=== PATIENT | male | born 1950 | race Caucasian/White ===

== ENCOUNTER → 2018-08-13 18:25 | Outpatient (REF) | payer MEDICARE, OTHER, SELFPAY ==
[2018-08-13 19:05] LABS: HEMOLYSIS < 15 (0-50)
[2018-08-13 19:11] LABS: Add Manual Diff / Slide Review NO; Basophils Absolute Auto 0 /uL (0-100); Basophils Percent Auto 0.5 % (0-2); Eosinophils Absolute Auto 200 /uL (0-450); Hematocrit 44.4 % (41-53); Hemoglobin 14.8 g/dL (13.5-17.5); Lymphocytes Absolute Auto 1600 /uL (1100-4500); Lymphocytes Percent Auto 28.2 % (25-40); Mean Corpuscular HGB Conc 33.3 % (30-36); Mean Corpuscular Hemoglobin 32.1 PG (26-34); Mean Corpuscular Volume 96.6 fL (80-100); Monocytes Absolute Auto 500 /uL (0-900); Monocytes Percent Auto 7.9 % (3-14); Neutrophils Absolute Auto 3400 /uL (1500-7000); Neutrophils Percent Auto 60.4 % (50-75); Platelet Count 167 X10^3/uL (150-400); Red Cell Distribution Width 13.6 % (11.6-14.8); White Blood Cell Count 5.7 X10^3/uL (4.5-11.0)
[2018-08-13 19:12] LABS: Alanine Aminotransferase 42 IU/L (21-72); Albumin 4.3 g/dL (3.5-5.0); Albumin Globulin Ratio 1.5 (1.0-2.8); Alkaline Phosphatase 61 U/L (38-126); Aspartate Aminotransferase 32 IU/L (17-59); BUN Creatinine Ratio 24.2 (6-22); Bilirubin Total 1.4 mg/dL (0.2-1.3); Blood Urea Nitrogen 29 mg/dL (9-20); Calcium 9.6 mg/dL (8.4-10.2); Carbon Dioxide 30 mmol/L (22-32); Chloride 103 mmol/L (98-107); Cholesterol 162 mg/dL (140-199); Estimated Glomerular Filt Rate > 60.0 mL/min (>60); Globulin 2.8 g/dL (1.7-4.1); Glucose 96 mg/dL (80-110); HDL Cholesterol 51 mg/dL (40-60); LDL Cholesterol Calculated 91 mg/dL (<100); Potassium 3.9 mmol/L (3.4-5.1); Sodium 141 mmol/L (137-145); Total Protein 7.1 g/dL (6.3-8.2); Triglycerides 99 mg/dL (35-150)
[2018-08-13 20:07] LABS: Prostate Specific Antigen < 0.064 ng/mL (0.10-4.00)
== END ==
LOC: LAB 18:25
PROVIDERS: Family Medicine Geriatric Medicine
DX: C61 Malignant neoplasm of prostate (principal); E78.5 Hyperlipidemia, unspecified; I10 Essential (primary) hypertension
CPT/HCPCS: 36415; 80053; 80061; 84153; 85025

== ENCOUNTER → 2021-06-09 07:58 | Outpatient (CLI) | payer MEDICARE, OTHER, SELFPAY ==
--- NOTE | 2021-06-09 | DI.NM.S_ITS ---
PROCEDURE: [place] BONE SCAN WHOLE BODY RADIOPHARMACEUTICAL: 19.7 mCi Tc-99m MDP IV. INDICATIONS: MALIGNANT NEOPLASM OF PROSTATE TECHNIQUE: Delayed whole-body scintigrams were obtained approximately 3-4 hours after intravenous injection of radiotracer. Anterior and posterior views were acquired from vertex to feet. COMPARISON: [facility], CT, CHEST/ABD/PEL WITH CONTRAST, 01/27/2017, 9:20. [facility], CT, CT CHEST ABD PEL W CON, 06/09/2021, 9:44. [place], [place], BONE SCAN WHOLE BODY, 04/26/2013, 11:43. [place], [place], BONE SCAN WHOLE BODY, 01/27/2017, 11:19. FINDINGS: No lesions are identified in skull, sternum, clavicles, scapulae, ribs, bony pelvis, and visualized shafts of the long bones. There is low level increased uptake in cervical, thoracic and lumbar spine with distribution indistinguishable from degenerative disc and facet disease; early metastasis to spine could be obscured by degenerative changes. There are foci of increased periarticular activity involving shoulders, sternoclavicular joints, elbows, hips, SI joints, knees, ankles and feet, compatible with degenerative/arthritic changes. IMPRESSION: No scintigraphic findings to suggest osseous metastasis. Dictated by: Mono Alexander M.D. on 06/09/2021 at 17:14 Approved by: Mono Alexander M.D. on 06/09/2021 at 17:17
[2021-06-09 08:42] LABS: Alanine Aminotransferase 26 IU/L (<50); Albumin 4.4 g/dL (3.5-5.0); Albumin Globulin Ratio 1.5 (1.0-2.8); Alkaline Phosphatase 59 U/L (38-126); Aspartate Aminotransferase 35 IU/L (17-59); BUN Creatinine Ratio 23.3 (6-22); Bilirubin Total 2.2 mg/dL (0.2-1.3); Blood Urea Nitrogen 31 mg/dL (9-20); Calcium 9.3 mg/dL (8.4-10.2); Carbon Dioxide 33 mmol/L (22-32); Chloride 103 mmol/L (98-107); Estimated Glomerular Filt Rate 53.2 mL/min (>60); Globulin 2.9 g/dL (1.7-4.1); Glucose 103 mg/dL (80-110); HEMOLYSIS < 15 (0-50); Potassium 3.7 mmol/L (3.4-5.1); Sodium 139 mmol/L (137-145); Total Protein 7.3 g/dL (6.3-8.2)
--- NOTE | 2021-06-09 09:55 | DI.CT.S_ITS ---
PROCEDURE: CT CHEST ABD PEL W CON INDICATIONS: MALIGNANT NEOPLASM OF PROSTATE TECHNIQUE: After the administration of oral and intravenous contrast, axial sections acquired from the supraclavicular neck to the pubic symphysis. Coronal and sagittal reformats were performed. For radiation dose reduction, the following was used: automated exposure control, adjustment of mA and/or kV according to patient size. COMPARISON: [facility], [place], BONE SCAN WHOLE BODY, 01/27/2017, 11:19. [facility], CT, CHEST/ABD/PEL WITH CONTRAST, 01/27/2017, 9:20. FINDINGS: Image quality: Excellent. CHEST: Lower Neck: No enlarged lymph nodes. Thyroid: Unremarkable. Axillae: No enlarged lymph nodes. Chest Wall: Prior right-sided rib fractures. Lungs and Airways: A few small pulmonary nodules. For example: -right upper lobe 0.4 cm, (3/87), unchanged since 2017 suggesting a benign etiology. -left lower lobe subpleural 0.4 cm, (3/199), unchanged. Mild atelectasis. No mass. Airways are clear. Pleura: No pneumothorax or pleural effusions. Heart: Heart size is normal. No pericardial effusion. Thoracic Vessels: The aorta and pulmonary arteries demonstrate normal size. Mediastinum and Leonela: No enlarged lymph nodes. Small mediastinal nodes are unchanged in appearance compared to 2017. Esophagus: No wall thickening. No hiatal hernia. ABDOMEN: Liver: No focal lesion. Gallbladder: Unremarkable. Biliary ducts: Unremarkable. Pancreas: Unremarkable. Spleen: Unremarkable. Adrenal Glands: Unremarkable. Kidneys and Ureters: No hydronephrosis. Tiny right cortical hypodensity. Stomach and Bowel: Stomach, small bowel loops, and colon are unremarkable. Small sigmoid diverticulum. The appendix is not identified. Peritoneum: No abnormal intraperitoneal fluid. No free air. Ventral Wall: No hernia. Abdominal Nodes: No retroperitoneal or mesenteric adenopathy by size criteria. Vessels: Aorta and inferior vena cava are normal in size. Minimal calcified plaque. Small left renal artery aneurysm with calcification measuring 1.2 cm, (2/65), previously 1.1 cm in 2017. PELVIS: Pelvic Organs: Scarring in the left perineum is unchanged compared to 2017. Prostatectomy. Penile reservoir at the right lower quadrant. Bladder: Unremarkable. Pelvic Nodes: -Small node right anterior to the bladder measuring 0.7 cm short axis diameter, (2/108), remotely 0.5 cm in 2017. -Left anterior to the bladder node with a short axis diameter of 0.5 cm, (2/111), previously 0.4 cm. Miscellaneous: No inguinal hernias are seen. Bones: L2 compression fracture, unchanged. No sclerotic lesions seen. IMPRESSION: 1. Post prostatectomy. 2. No enlarged lymph nodes. Subcentimeter nodes in the pelvis are similar to 2017. 3. No sclerotic osseous lesions identified. 4. Small pulmonary nodules measuring 0.4 cm or less are unchanged. Dictated by: Renato Blake M.D. on 06/09/2021 at 11:05 Approved by: Renato Blake M.D. on 06/09/2021 at 11:23
== END ==
PROVIDERS: Family Provider Family Medicine Geriatric Medicine; PCP Family Medicine; Referring Provider Internal Medicine; Visit Provider Internal Medicine
DX: C61 Malignant neoplasm of prostate (principal); R91.8 Other nonspecific abnormal finding of lung field
CPT/HCPCS: 36415; 71260; 74177; 78306; 80053; A9503

== ENCOUNTER → 2023-12-28 09:24 | Outpatient (CLI) | payer MEDICARE, OTHER, SELFPAY ==
--- NOTE | 2023-12-28 09:30 | DI.NM.S_ITS ---
PROCEDURE: [place] BONE SCAN WHOLE BODY RADIOPHARMACEUTICAL: 20 mCi Tc-99m MDP IV. INDICATIONS: Malignant neoplasm of prostate TECHNIQUE: Delayed whole-body scintigrams were obtained approximately 3-4 hours after intravenous injection of radiotracer. Anterior and posterior views were acquired from vertex to feet. COMPARISON: [place], [place], [place] BONE SCAN WHOLE BODY, 06/09/2021, 14:16. FINDINGS: No scintigraphic evidence suggestive osseous metastatic disease. Stable small focus of increased uptake within the right posterior 5th rib of uncertain etiology, given stability for multiple years this is likely not metastatic in etiology. Multifocal periarticular uptake involving the shoulders, knees, feet and mild uptake throughout the spine, favored to be degenerative in etiology. IMPRESSION: No definite scintigraphic evidence of osseous metastatic disease. Dictated by: Teofilo Mejia M.D. on 12/28/2023 at 15:31 Approved by: Teofilo Mejia M.D. on 12/28/2023 at 15:34
--- NOTE | 2023-12-28 09:31 | DI.CT.S_ITS ---
PROCEDURE: CT CHEST ABD PEL W CON INDICATIONS: Malignant neoplasm of prostate TECHNIQUE: After the administration of intravenous contrast, 5 mm thick sections acquired from the lung apices to the symphysis. 5 mm coronal and sagittal reformats were performed, with additional 7 mm MIP reformats through the lungs. For radiation dose reduction, the following was used: automated exposure control, adjustment of mA and/or kV according to patient size. COMPARISON: [facility], CT, CT CHEST ABD PEL W CON, 06/09/2021, 9:44. [place], [place] BONE SCAN WHOLE BODY, 06/09/2021, 14:16. [place], [place] BONE SCAN WHOLE BODY, 12/28/2023, 10:33. FINDINGS: Image quality: Excellent. CHEST: Lower Neck: No enlarged lymph nodes. Thyroid: No thyroid nodules which require sonographic follow up, per consensus guidelines. Axillae: No enlarged lymph nodes. Chest Wall: Bilateral gynecomastia. Lungs and Pleura: No pneumothorax or pleural effusions. Scattered solid pulmonary micro nodules, similar to prior. For instance, the 3 mm solid nodule in the right upper lobe is unchanged (series 5, image 72), and the 2 mm nodule in the lingula is unchanged (series 5, image 193). Heart: Heart size is normal. No pericardial effusion. Thoracic Vessels: The aorta and pulmonary arteries demonstrate normal size. Small burden filling defects within the proximal segmental and subsegmental pulmonary arteries, left greater than right. Mediastinum and Leonela: No enlarged lymph nodes. Esophagus: No wall thickening. No hiatal hernia. ABDOMEN: Liver: No solid mass. Gallbladder: No radiopaque gallstones or wall thickening. Biliary ducts: No biliary dilation. Pancreas: No ductal dilation. Spleen: Size is within normal limits. Adrenal Glands: No adrenal nodules. Kidneys and Ureters: No hydronephrosis. No solid mass. No complex renal cystic lesion which requires follow up. Stomach and Bowel: Normal colonic caliber, without significant wall thickening. Colonic diverticulosis without evidence of diverticulitis. Peritoneum: No abnormal intraperitoneal fluid. No free air. Ventral Wall: No significant ventral hernia. Abdominal Nodes: No retroperitoneal or mesenteric adenopathy by size criteria. Vessels: Aorta and inferior vena cava are normal in size. 1.4 cm left renal artery aneurysm unchanged (series 2, image 63). PELVIS: Pelvic Organs: Prostatectomy. Penile reservoir in the right lower quadrant. Bladder: No bladder wall thickening, accounting for underdistention. Pelvic Nodes: No enlarged lymph nodes. Stable prominent deep left inguinal chain node measuring 1 cm short axis (series 2, image 107). Miscellaneous: No inguinal hernias are seen. Bones: No aggressive osseous abnormality. Stable vertebral body height loss at L2. IMPRESSION: Small burden of pulmonary embolus. No evidence of heart strain or infarct. Prostatectomy. No suspicious pelvic adenopathy. No aggressive osseous abnormality. 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 Attention on follow-up. Dictated by: Santhosh Prince M.D. on 12/28/2023 at 14:05 Approved by: Santhosh Prince M.D. on 12/28/2023 at 14:12
[2023-12-28 10:16] LABS: Estimated Glomerular Filt Rate > 60 mL/min (>60)
== END ==
PROVIDERS: Radiology Diagnostic Radiology; Family Provider Family Medicine Geriatric Medicine; PCP Internal Medicine; Referring Provider Nurse Practitioner Family; Visit Provider Nurse Practitioner Family
DX: C61 Malignant neoplasm of prostate (principal); I26.99 Other pulmonary embolism without acute cor pulmonale; I72.2 Aneurysm of renal artery; K57.90 Diverticulosis of intestine, part unspecified, without perforation or abscess without bleeding
CPT/HCPCS: 36415; 71260; 74177; 78306; 82565; A9503; Q9967

== ENCOUNTER 2024-01-10 12:32 | Day surgery (SDC) | payer MEDICARE, OTHER, SELFPAY ==
--- NOTE | 2024-01-10 | PATH_ITS ---
[facility] Accession Number: [id number] No. of containers..01 Tissue . 01 Material submitted: . colon - RANDOM COLON . 01 Diagnosis: COLON, RANDOM BIOPSIES: Fragments of benign colonic mucosa. Negative for microscopic colitis, dysplasia, or malignancy. MRV 01/12/2024 1301 Local . 01 Electronically signed: . Manuela Marie MD, Pathologist NPI- [id number] . 01 Gross description: . Received in formalin with two patient identifiers and random colon, are multiple mathis soft tissue fragments, 0.7 x 0.5 x 0.1 cm. Filtered and submitted in A1. ([id number]) /MRV 01/11/2024 1722 Local . 01 Pathologist provided ICD-10: Z86.010 . 01 CPT . 827619 Specimen Comment: A courtesy copy of this report has been sent to [phone] Performed at: [address] [facility] [address], [place], [place] [id number] MD Juan Antonio Real MD Phone: [phone]
[2024-01-10 12:59] VITALS: BP 160/86; PULSE 70; RESP 16; TEMP 36.3; O2SAT 97
[2024-01-10] MEDS: LACTATED RINGERS 1,000 ML 42 ML IV (13:05)
--- NOTE | 2024-01-10 13:14 | PM.HP.1 ---
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, unspecified Hypercholesteremia Hypertension Prostate cancer Surgical History (Updated 01/10/24 @ 12:58 by Marlene Du, RN) Ileostomy status S/P colostomy takedown Urinary tract artificial opening in place H/O prostatectomy Social History (System 08/14/18 @ 08:15 by Flaquita Cage) Smoking Status: Never smoker alcohol intake: never Meds Home Medications and Allergies Home Medications Medication Instructions Recorded Confirmed Type Simvastatin (Zocor) 20 mg Q DAY ##0 02/24/10 01/10/24 History TRIAMTERENE (Dyrenium) Q DAY ##0 02/24/10 History amlodipine 2.5 mg tablet 2.5 mg PO DAILY 01/10/24 01/10/24 History bicalutamide 50 mg tablet 50 mg PO DAILY 01/10/24 01/10/24 History famotidine 20 mg tablet 20 mg PO BID 01/10/24 01/10/24 History gabapentin 300 mg capsule 300 mg PO 3XD 01/10/24 01/10/24 History tamoxifen 10 mg tablet 10 mg PO DAILY 01/10/24 01/10/24 History Allergies Allergy/AdvReac Type Severity Reaction Status Date / Time No Known Drug Allergies Allergy Verified 01/10/24 12:45 Exam Vital Signs (past 8 hours): - 01/10/24 12:59 Temperature 97.3 F L Pulse Rate 70 Respiratory Rate 16 Blood Pressure 160/86 H Pulse Oximetry 97 Oxygen Delivery Method Room Air Oxygen Delivery Method Room Air Narrative Exam Narrative: Oropharynx free of lesions Chest clear to auscultation percussion Cardiac exam reveals no S3 or murmur Assessment & Plan Assessment & Plan narrative: Need for screening and with history of abnormal bowel movements and abdominal and rectal discomfort. Need for colonoscopy. Risks, benefits, and alternatives have been explained Time-Based Coding :: [TOTAL MINUTES] spent with patient and on the chart (including review of chart, obtaining history, exam, reviewing outside data, placing orders, documenting exam and treatment plan, and counseling patient) on [DATE].
--- NOTE | 2024-01-10 13:16 | PM.OP.COLON ---
Operative Date/Time/Diagnoses Date of procedure: 01/10/24 Pre-op diagnosis: See indication and findings Procedure & Clinicians Study performed: Colonoscopy Indications: Screening and history of abnormal bowel movements and abdominal and rectal pain Surgeon: Princess Montes De Oca Procedure Notes Procedure in detail: After informed consent was obtained the patient was placed in left lateral decubitus position. The video colonoscope was introduced the rectum slowly advanced cecum and then to the terminal ileum. Preparation was good. On slow withdrawal mucosa was carefully examined. The scope was removed. The patient tolerated procedure well. Blood loss none Complications none Sedation mac Findings 1. Normal terminal ileum 2. Normal colonoscopy to cecum. Random biopsies taken to rule out underlying colitis Will be in touch regarding biopsies. Should have follow-up colonoscopy in 5-10 years
[2024-01-10 13:42] VITALS: BP 110/67; PULSE 64; RESP 17; TEMP 36.4; O2SAT 92
[2024-01-10 13:45] VITALS: BP 112/71; PULSE 61; RESP 16; O2SAT 95
[2024-01-10 13:50] VITALS: BP 116/72; PULSE 66; RESP 14; O2SAT 93
[2024-01-10 13:55] VITALS: BP 125/70; PULSE 67; RESP 16; O2SAT 93
[2024-01-10 13:57] VITALS: BP 122/82; PULSE 67; RESP 12; O2SAT 94
== END 2024-01-10 14:10 | disposition home or self-care (01) ==
PROVIDERS: Family Provider Family Medicine Geriatric Medicine; PCP Internal Medicine; Referring Provider Internal Medicine Gastroenterology; Visit Provider Internal Medicine Gastroenterology
PROC: 0DJD8ZZ Inspection of Lower Intestinal Tract, Via Natural or Artificial Opening Endoscopic (ICD-10-PCS; CPT 45378; principal; 2024-01-10 13:30)
DX: Z12.11 Encounter for screening for malignant neoplasm of colon (principal)
CPT/HCPCS: 45380; J2704

== ENCOUNTER → 2025-02-03 14:12 | Outpatient (CLI) | payer MEDICARE, SELFPAY ==
[2025-02-03 15:05] LABS: Alanine Aminotransferase 33 IU/L (<50); Albumin 4.3 g/dL (3.5-5.0); Albumin Globulin Ratio 1.9 (1.0-2.8); Alkaline Phosphatase 76 U/L (38-126); Blood Urea Nitrogen 34 mg/dL (9-20); Calcium 9.3 mg/dL (8.4-10.2); Carbon Dioxide 27 mmol/L (22-32); Chloride 107 mmol/L (98-107); Cholesterol 156 mg/dL (140-199); Estimated Glomerular Filt Rate > 60 mL/min (>60); Globulin 2.3 g/dL (1.7-4.1); Glucose 100 mg/dL (70-99); HDL Cholesterol 42 mg/dL (40-60); HEMOLYSIS < 15 (0-50); Potassium 4.2 mmol/L (3.4-5.1); Sodium 140 mmol/L (137-145); Total Protein 6.6 g/dL (6.3-8.2); Triglycerides 193 mg/dL (35-150)
[2025-02-03 15:27] LABS: Hematocrit 42.4 % (41-53); Hemoglobin 14.8 g/dL (13.5-17.5); Mean Corpuscular HGB Conc 35.0 % (30-36); Mean Corpuscular Hemoglobin 32.7 PG (26-34); Mean Corpuscular Volume 93.4 fL (80-100); Platelet Count 162 X10^3/uL (150-400)
[2025-02-03 15:34] LABS: Prostate Specific Antigen 1.02 ng/mL (0.10-4.00); TSH w/ Reflex to FT4 1.84 uIU/mL (0.47-4.68)
[2025-02-03 16:49] LABS: Add Manual Diff / Slide Review YES
[2025-02-03 16:54] LABS: Eosinophils Percent Manual 4.0 % (2-4); Lymphocytes Percent Manual 32.0 % (25-45); Monocytes Percent Manual 6.0 % (2-11); Neutrophils Absolute Manual 3538 /uL (3000-5900); Segmented Neutrophils Percent 58.0 % (38-70); Total Cells Counted 100
[2025-02-03 16:55] LABS: RBC Morphology Normal Morphology
== END ==
PROVIDERS: PCP Family Medicine; Referring Provider Family Medicine; Visit Provider Family Medicine
DX: E78.00 Pure hypercholesterolemia, unspecified (principal); I10 Essential (primary) hypertension
CPT/HCPCS: 36415; 80053; 80061; 84153; 84443; 85007; 85025